=== PATIENT | female | born 1970 | race Caucasian/White ===

== ENCOUNTER 2024-08-21 21:48 | Emergency (ER) | payer OTHER, SELFPAY ==
[2024-08-21 21:49] VITALS: BP 154/80
--- NOTE | 2024-08-21 23:43 | ED.GENMED ---
History of Present Illness
General
Chief Complaint: Musculo-Skeletal Complaint
Time Seen by Provider: 08/21/24 23:42
History of Present Illness
History of Present Illness:
TIME OF INITIAL ENCOUNTER: 11:45 PM
HPI: The patient presents due to 2 days of left hip discomfort. She points to the lateral aspect of the left hip however she also has pain going from the left buttock down to the left mid thigh. She has no fevers. There is no injury. She has a
remote history of lumbar surgery. She feels a heaviness into the left thigh. The patient states she has been having trouble sleeping due to that is
EXAM:
GENERAL: Well appearing in no distress
HEENT: Moist oral mucosa
NEUROLOGIC: Excellent strength all extremities, no obvious coordination deficits
PSYCHIATRIC: Appropriate mental status, normal insight and judgement
EXTREMITIES: Tenderness near the left trochanteric bursa, no edema, decreased active range of motion at the left hip, positive straight leg raise on the left
SKIN: No rash, no lesions
NUMBER AND COMPLEXITY OF PROBLEMS ADDRESSED AT THE ENCOUNTER
� Chronic conditions affecting care: Has had kidney stones in the past, has had spinal fusion in the past
� Acute Exacerbation and/or Progression of Chronic Illness: This is an acute problem
� Differential Diagnosis includes: Sciatica, bursitis, osteoarthritis
AMOUNT AND/OR COMPLEXITY OF DATA TO BE REVIEWED AND ANALYZED
� I performed an independent evaluation of and my interpretation is:
EKG:
CT:
X-rays: X-ray suggest osteoarthritis at the left hip
Laboratory Studies:
Other:
� Review of other/old records: I reviewed records, patient had colonoscopy in 2019 related to GI bleed
� Clinical information was obtained by an independent historian: None needed
� Prescriptions/Medications Considered but not given:
� Further testing considered but not performed:
RISK OF COMPLICATIONS AND/OR MORBIDITY OR MORTALITY OF PATIENT MANAGEMENT
� Social determinants of health affecting care: Lives at home
� Discussion with other providers:
� Escalation of care including admission/observation vs risk of discharge considered: Symptoms may be related to a combination of trochanteric bursitis and sciatica. She has already tried NSAIDs as an outpatient with not much
improvement. Will give a dose of Toradol here and also try a dose of Percocet. She does have a positive straight leg raise therefore I am concerned about sciatica as well�will give a short course of steroids.
ANY OTHER UPDATES:
Past History
Past History
ED Past Medical History: Other (Kidney stones)
ED Past Surgical History: None, Gynecological (Ovarian cyst surgeries, Hysterectomy) and Orthopedic (Spinal fusion)
Patient has exhibited threatening behavior?: No
Social History
Personal:
Living: with family
Phy Exam
Physical Exam
Physical Exam:
See HPI
Course
Orders/Labs/Results
Orders:
Orders
08/21/24 21:52
Hip, Left 2-3 Views [CR Hip - LT w/wo Pel 2-3 Vw*] Urgent
Comment:
Reason For Exam: pain
Include a pelvis x-ray?: Yes
08/21/24 23:56
Ketorolac [Toradol] 30 mg IM NOW STA
Oxycodone/Acetaminophen [Percocet 5/325] 1 tablet PO NOW STA
Vital Signs
Initial and Last Documented VS:
Initial Vital Signs
Temp Pulse Resp BP Pulse Ox
36.6 C 72 16 154/80 97
08/21/24 21:49 08/21/24 21:49 08/21/24 21:49 08/21/24 21:49 08/21/24 21:49
Last Documented Vital Signs
Temp Pulse Resp BP Pulse Ox
36.6 C 72 16 154/80 97
08/21/24 21:49 08/21/24 21:49 08/21/24 21:49 08/21/24 21:49 01/06/25 21:49
*Critical Care Note
Total Time (30-74mins, 75-104mins- exclusive of procedures): Not Applicable
ED Attending Note
-
Portions of this chart may have been created with voice recognition software.� Occasional wrong word or��sound alike� substitutions may have occurred due to the inherent limitations of voice recognition software.
Discharge Plan
Departure
Patient Disposition: Home (Routine Discharge)
Date of Disposition: 08/21/24
Time of Disposition: 23:57
Patient with high blood pressure during this ER visit?: Yes
Discharge Problem:
Sciatica of left side, Bursitis
Instructions: Bursitis ED, Sciatica ED, Exercises for sciatic pain
Prescriptions:
New
oxycodone-acetaminophen [Percocet] 5-325 mg tablet
1 - 2 tab PO Q6HPRN PRN (Reason: pain) Qty: 14 0RF
prednisone 50 mg tablet
50 mg PO DAILY Qty: 5 0RF
No Action
hydrocodone-acetaminophen 1 TABLET tablet
1 tab PO Q4HPRN PRN (Reason: severe pain) Qty: 10 0RF
tamsulosin 0.4 MG capsule
0.4 mg PO HS Qty: 7 0RF
indomethacin 50 MG capsule
50 mg PO TID Qty: 15 0RF
Rx Instructions:
Take with food
Referrals:
Zia Barros MD [Active] - Follow up in 2-3 days
Aurelio Espinal CRNP [Family Provider] -
Activity Restrictions/Additional Instructions:
Start steroids in the morning. If you take Percocet, consider taking some like MiraLAX to help prevent constipation. I have given the contact information for local orthopedist, Dr. Barros.
Interventions
Interventions:
*Risk Screen - Suicide Last Done: 08/21/24 21:49
*General Assessment Last Done: 08/21/24 21:49
*Neglect/Abuse Screening Last Done: 08/21/24 21:49
*ED COVID-19 Vaccine History Last Done: 08/21/24 21:49
Discharge Date and Time
Print Language: AFGHAN
[2024-08-22] MEDS: PERCOCET 5/325 1 TABLET PO (00:12)
[2024-08-22] MEDS: TORADOL 30 MG IM (00:13)
[2024-08-22 00:25] VITALS: BP 121/81
== END 2024-08-22 00:27 | disposition home or self-care (01) ==
LOC: EMR 21:48
PROVIDERS: EMERGENCY PHYSICIAN Emergency Medicine; FAMILY PHYSICIAN Nurse Practitioner Family
DX: M25.552 Pain in left hip (principal); M54.32 Sciatica, left side; M71.9 Bursopathy, unspecified; Z87.442 Personal history of urinary calculi; Z90.710 Acquired absence of both cervix and uterus; Z98.1 Arthrodesis status
CPT/HCPCS: 99283; 96372; 73502

== ENCOUNTER → 2025-06-26 12:38 | Outpatient (REF) | payer OTHER, SELFPAY | LOC: REG 12:38 | PROVIDERS: ATTENDING PHYSICIAN Internal Medicine Gastroenterology; FAMILY PHYSICIAN Family Medicine | DX: R19.7 Diarrhea, unspecified (principal) | CPT/HCPCS: 83993; 87045; 87046; 87324; 87328; 87329; 87427; 87449; 89055 ==

== ENCOUNTER 2025-07-16 06:20 | Day surgery (SDC) | payer OTHER, SELFPAY | END 2025-07-16 13:47 | disposition home or self-care (01) | LOC: GI 06:20 | PROVIDERS: ATTENDING PHYSICIAN Internal Medicine Gastroenterology | DX: K52.9 Noninfective gastroenteritis and colitis, unspecified (principal); K64.8 Other hemorrhoids; K57.30 Diverticulosis of large intestine without perforation or abscess without bleeding; R10.13 Epigastric pain; K44.9 Diaphragmatic hernia without obstruction or gangrene; K31.89 Other diseases of stomach and duodenum; D12.2 Benign neoplasm of ascending colon | CPT/HCPCS: 45380; 43239; 88305; 88342 ==